=== PATIENT | male | born 1990 | race Caucasian/White ===

== ENCOUNTER 2016-11-25 10:10 | Observation (INO) ==
[2016-11-25] MEDS ORDERED: KETOROLAC 30 MG/ML INJECTION IVP ONE (10:42)
[2016-11-25] MEDS ORDERED: NS 1,000 ML IV ONE (10:42)
--- NOTE | 2016-11-25 10:47 | Emergency Department Report ---
Abdominal Pain HPI - General Chief Complaint: Abdominal Pain Stated Complaint: severe abd pain,vomiting,loose stools Time Seen by Provider: 11/25/16 10:14 Source: patient, old records reviewed Mode of arrival: ambulatory Limitations: no limitations - History of Present Illness HPI narrative: 26yo man presents to the ER for evaluation of abdominal pain. Pts pain started 7 days ago; 3 days ago, the pain had increased to the point that pt presented to the ER for evaluation. Pt was found to have ascending/transverse colitis. Pt was given levsin and zofran and d/c'ed to home. Pts sx have not improved in the intervening 3 days. Pt has not f/u with his PCM (was over the weekend). Pt has never had sx like this before. No diarrhea or bloody stools; describes current stools (such as he can expel) as 'foamy'. Has tenesmus. States that he cannot eat or drink 2/2 abd pain. MD complaint: abdominal pain Onset (ago): day(s) (7) Consistency: constant Location: RUQ Severity: severe Severity scale (1-10): 8 Quality: cramping, stabbing Radiation: none Migration to: no migration Relieving factors: nothing Exacerbating factors: eating, bowel movement, movement Associated symptoms: nausea, vomiting Treatments prior to arrival: other - Related Data Home Medications Medication Instructions Recorded Confirmed LORazepam [Ativan] 0.5 mg PO TID PRN 11/23/16 11/25/16 Ondansetron HCl [Zofran] 8 mg PO O 11/23/16 11/25/16 diphenhydrAMINE HCl [Benadryl] 25 mg PO HS PRN 11/23/16 11/25/16 Previous Rx's Medication Instructions Recorded Hyoscyamine Sulfate [Levsin-Sl] 0.125 mg SL Q6H PRN #15 tab.subl 11/23/16 Allergies Allergy/AdvReac Type Severity Reaction Status Date / Time No Known Allergies Allergy Verified 11/25/16 15:13 Review of Systems All systems: reviewed and negative except as stated Gastrointestinal: Reports: as per HPI, abdominal pain, nausea, vomiting, other ( tenesmus) PFSH Medical History Updates: Allergic rhinitis Surgical History: Denies any PSH - Social History Smoking status: Never smoker Physical Exam - Limitations Limitations: no limitations - General General appearance: alert, in no apparent distress - Normal Exams: Head:: Normocephalic without trauma Eyes:: Pupils are PERRLA w/ EOMI, No scleral icterus, irritation, or foreign bodies noted ENMT:: No facial trauma, nasal exudates, pharyngeal erythema, or exudates are noted Neck:: Full range of motion, without adenopathy Chest/Respirations:: Clear all b[place], with good airflow Cardiovascular:: Regular rate and rhythm, without murmur or gallop, Pulses 2+ all extremities, capillary refill Lymphatic:: No lymphadenopathy Musculoskeletal:: No tenderness, or deformity noted Integumentary:: No rashes, hives, or bruising noted Neurological:: Patient is alert, and oriented Psychiatric:: Patient exhibits, appropriate attention - Abdominal Exam Abdominal exam: Present: soft, tenderness (in RLQ), hyperactive bowel sounds. Absent: distention, guarding, rebound, rigidity, psoas sign, obturator sign, Meehan's sign, Rovsing's sign, tenderness at McBurney's Point, hernia Course - Consultations Consultation #1: General Surgery: If pt is in that much pain, contact hospitalist for admission. Treat empirically for inflammatory colitis, give a bowel prep, and plan for colonoscopy. Time: 11:35 Consultation #2: Dr. Trinh: Will admit pt. Time: 12:00 Vital Signs Temperature 97.6 F 11/25/16 10:12 Pulse Rate 60 11/25/16 10:12 Respiratory Rate 20 11/25/16 10:12 Blood Pressure 142/82 H 11/25/16 10:12 Pulse Oximetry 97 11/25/16 10:12 Temperature 97.6 F 11/25/16 10:12 Pulse Rate 60 11/25/16 10:12 Respiratory Rate 20 11/25/16 10:12 Blood Pressure 142/82 H 11/25/16 10:12 Pulse Oximetry 97 11/25/16 10:12 Abdominal Pain - Differential Diagnosis Differential diagnosis: Likely: abdominal pain, acute appendicitis, constipation , diverticulitis, endometriosis, gastroenteritis, pancreatitis, small bowel obstruction - Medical Records Attestation: I reviewed the patient's medical records. - Lab Data Attestation: I reviewed the patient's lab results. Result diagrams: 11/26/16 04:23 11/26/16 04:23 - Radiology Data Attestation: I reviewed the patient's radiology results. CT from 23 NOV 2016: Impression: Right sided colitis could be infectious or inflammatory. Disposition Clinical Impression: Abdominal pain Qualifiers: Abdominal location: unspecified location Qualified Code(s): R10.9 - Unspecified abdominal pain Disposition: 02 To [facility] [place] Care Condition: Stable Time of Disposition: 12:15 - Seen By: physician
[2016-11-25] MEDS: SALINE FLUSH 10ml SYRINGE IVF PRN ×2 (11:08→15:05)
--- NOTE | 2016-11-25 13:57 | History & Physical Report ---
<Mera Kelly - Last Filed: 11/25/16 13:43> History of Present Illness Date: 11/25/16 Chief complaint: Abdominal pain HPI: Corey Long is a healthy 26 y/o male who started to have a mildly upset stomach in the evening of 11/19/16. 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 However, at 0300 on 11/22/16, his pain became severe and he started to vomit. His pain started across his lower abdomen, but time went on it started to settle on the right side. He describes the pain as a "pulling" sensation. His oral intake has suffered greatly - he became nauseated with even a sip of water. He hasn't eaten anything since 11/22/16 in the afternoon, and since then has only had a few sips of water. He hasn't had much stool output, but notes it has been "foamy". He feels a little weak overall, but denies lightheadedness, dizziness, or syncope. He has not had any fevers or chills. Other than his allergies starting to give him trouble, he denies any cough/congestion, or sore throat. He denies shortness of breath or chest pain or palpitations. He denies bloody urine or hematuria, but states that he has only voided once so far today. He was seen in the ED on 11/23/16, and a CT scan showed right sided colitis to the ascending and proximal transverse colon. Labs on 11/23/16 showed a normal WBC and an elevated sodium of 150. He was sent home with Rx Levsin but his symptoms never improved. He returned to the ED on 11/25/16 , and labs were repeated - WBC 7.0, hgb 15.6, Na 149, K 4.3, BUN 17, creatinine 1.0. Total bilirubin was 2.4. Lactate was 1.3. He received 1L of NS and Toradol , which relieved his pain. He was admitted to observation status for surgical consultation. Review of Systems Comprehensive ROS: completed and no additional positive findings except those as stated - Constitutional Constitutional: Present: as per HPI - EENMT Eyes: Absent: change in vision Nose: Present: as per HPI Mouth/Throat: Present: as per HPI - Cardiovascular Cardiovascular: Absent: chest pain, dyspnea on exertion Vascular: Absent: pedal edema - Respiratory Respiratory: Present: as per HPI - Gastrointestinal Gastrointestinal: Present: as per HPI - Genitourinary Genitourinary: Present: as per HPI - Neurological Neurological: Present: as per HPI - Psychiatric Psychiatric: Present: anxiety (with long travels - has PRN medication to take) - Hematologic/Lymphatic Hematologic/Lymphatic: Absent: easy bleeding - Allergic/Immunologic Allergic/Immunologic: Present: as per HPI PFSH Allergic rhinitis Surgical History: Denies any PSH Family History: Mother alive and well other than back problems. Father may have heart disease. 2 brothers and 1 sister - all healthy. Maternal grandfather of Alzheimer's disease. Strong family history of heart disease on father's side - Paternal grandfather of [place]; uncles also had CAD. Denies family history of ulcerative colitis, Crohn's disease, or colon cancer. - Social History Smoking status: Never smoker Substance use type: does not use Alcohol intake frequency: holidays/special occasions only Household members: significant other ( (Kathie) is a RN), children (2 children, ages 4 and 2) Current occupational status: employed Current occupation: data officer Medications Home Medications Medication Instructions Recorded Confirmed Type LORazepam [Ativan] 0.5 mg PO TID PRN 11/23/16 11/25/16 History Ondansetron HCl [Zofran] 8 mg PO O 11/23/16 11/25/16 History diphenhydrAMINE HCl [Benadryl] 25 mg PO HS PRN 11/23/16 11/25/16 History Allergies Allergy/AdvReac Type Severity Reaction Status Date / Time No Known Allergies Allergy Verified 11/25/16 15:13 Exam Vital Signs: Temperature 97.6 F 11/25/16 10:12 Pulse Rate 60 11/25/16 10:12 Respiratory Rate 20 11/25/16 10:12 Blood Pressure 142/82 H 11/25/16 10:12 Pulse Oximetry 97 11/25/16 10:12 - Constitutional Present: no acute distress, well nourished, well developed, thin - Routine HEENT Exam Eye: Present: PERRL, conjunctivae pink. Absent: conjunctival icterus, scleral injection ENT: Present: mucous membranes moist, oropharynx clear - Routine Neck Exam Present: supple. Absent: lymphadenopathy - Routine Respiratory Exam Present: CTA bilaterally - Routine Cardiovascular Exam Present: RRR, S1, S2 - Routine Abdominal Exam Present: soft, non tender, distended (mild). Absent: normoactive bowel sounds ( hypoactive sounds LUQ and LLQ), rebound, guarding - Routine Extremities Exam Present: no edema, pulses intact, normal capillary refill. Absent: calf tenderness - Routine Skin Exam Present: intact, dry, warm - Routine Neurological Exam Present: alert, oriented X3, CN II-XII intact, moving all extremities, vision grossly intact, hearing grossly intact, normal speech. Absent: facial asymmetry - Routine Psychiatric Exam Present: normal affect, normal thought process, cooperative Results - Labs CBC & Chem 7: 11/25/16 11:13 11/25/16 11:13 - Imaging and Cardiology CT scan - abdomen Additional comments: Type of Exam(s): CT abdomen pelvis w contrast Date: 11/23/16 Findings: The lung bases are clear. The liver, gallbladder, pancreas, adrenal glands and kidneys are normal. The spleen is normal. No abdominal or pelvic adenopathy. Bladder is normal. Prostate and rectum are unremarkable. No free fluid. No evidence of a bowel obstruction. There is significant wall thickening and inflammatory change involving the ascending and proximal transverse colon. Mid to distal transverse and left colon appear normal. The appendix is normal. Bone windows are within normal limits. Impression: Right sided colitis could be infectious or inflammatory. Assessment and Plan (1) Colitis Current visit: Yes Status: Acute DVT Prophylaxis: SCD's Resuscitation Status: Full Code Assessment and Plan: Assessment Acute right sided colitis involving the ascending and proximal transverse colon Hypernatremia, POA Hyperbilirubinemia, POA Plan Admit, observation status under the hospitalist service. Consult Dr. Mora - may need endoscopy. Diet: Clears. IVF: D5 1/2 NS at 250 mL/hr x 1L then reduce rate to 125 mL/hr. Symptom control: Zofran, Toradol PRN. GI panel pending. Repeat CBC, CMP in am. Bilirubin was 1.30 on 11/23/16 - on admission it was 2.4 without elevation in other liver enzymes. Discussed with Dr. Trinh: she will likely begin empiric antibiotics, possibly steroids. Hospital Course Summary Disclaimer: The visit summary below is not to be considered part of the above Progress Note. Hospital Course: Admitted on 11/25/16 for Acute right sided colitis involving the ascending and proximal transverse colon; Hypernatremia; and Hyperbilirubinemia. IVF were started for hydration and to treat hypernatremia. Zofran and Toradol were available for symptom relief. Dr. Mora was consulted. <ZiggyBryanLinda L - Last Filed: 11/25/16 15:48> History of Present Illness Date: 11/25/16 [facility] Patient Stated Medical History Other GI Yes: UMBILICAL HERNIA Other Behavioral Health Yes: CLOSTERFOBIA Exam Vital Signs: Temperature 96.1 F L 11/25/16 14:23 Pulse Rate 66 11/25/16 14:23 Respiratory Rate 16 11/25/16 14:23 Blood Pressure 123/65 11/25/16 14:23 Pulse Oximetry 100 11/25/16 14:23 Oxygen Delivery Method Room Air Height/Weight/BMI: Height 1.83 m Weight 80.8 kg Body Mass Index 24.1 Results - Labs CBC & Chem 7: 11/25/16 11:13 11/25/16 11:13 Assessment and Plan (1) Colitis Current visit: Yes Status: Acute Assessment and Plan: 11/25/2016-I reviewed this chart, the patient history, and the COMMUNITY RELATIONS COORDINATOR's/PA's documented findings as above. We discussed and formulated the assessment and plan as above with the additions below.-Dr. Trinh The patient was seen this afternoon accompanied by his . GI panel was obtained and shows enterotoxigenic Escherichia coli positive PCR. The patient has had no sick contacts. He does report that symptoms started after he ate at [email or web address]. He denies any bloody stools. He denies any fevers, chills or sweats. He does have abdominal pain that was initially in the lower abdomen and then moved to be all over the abdomen and now is more in the right upper abdomen. His appetite is decreased and he is vomiting even with liquids for the past several days. He has tenesmus and foamy stool. Today stool is small and brown. He has felt weak which he thinks is due to dehydration and poor by mouth intake recently. He denies lightheadedness, chest pain, generalized achiness, skin rashes. He states his urine has been dark and he has had decreased urination with decreased by mouth intake. Otherwise comprehensive review of systems is entirely negative. On exam he is alert and oriented 3 and in no acute distress. HEENT reveals sclerae to be anicteric and pupils are equal. Oropharynx is moist. Neck is supple. Chest is clear to auscultation. Cardiovascular reveals a regular rate and rhythm. Abdomen is soft with positive bowel sounds. He is tender in the right upper quadrant and right mid abdomen. No rebound or guarding. No distention. Chimneys are free of edema. Skin is warm and dry and without rashes. Neurologic exam reveals no focal deficits. Lab GI panel is positive for enterotoxigenic Escherichia coli UA elevated specific gravity, 3+ ketones, +1 occult blood, +1 bilirubin, no RBCs seen CMP shows elevated sodium of 149 and elevated total bilirubin of 2.4. Lactate is normal CT abdomen from 2 days ago reviewed and revealed right sided colitis which could be infectious or inflammatory. Impression Colitis, most likely from enterotoxigenic Escherichia coli. Dehydration Hypernatremia secondary to dehydration Elevated bilirubin Plan IV Flagyl and Cipro for now. IV fluids for dehydration Recheck lab tomorrow Obtain conjugated and unconjugated bilirubin levels Will discuss further plans with Dr. Mora. Hospital Course Summary Disclaimer: The visit summary below is not to be considered part of the above Progress Note.
[2016-11-25 14:08] VITALS: BMI 24.1
[2016-11-25] MEDS ORDERED: ONDANSETRON 4 MG/2 ML INJECTION IVP PRN (14:23)
[2016-11-25] MEDS ORDERED: KETOROLAC 15 MG/ML INJECTION IVP PRN (14:23)
[2016-11-25 14:24] VITALS: RESP 16
[2016-11-25] MEDS: D5-1/2NS 1,000 ML IV SCH ×2 (15:06→22:15)
[2016-11-25] MEDS ORDERED: HYDROMORPHONE 2 MG/ML INJECTION IVP PRN (15:14)
[2016-11-25] MEDS ORDERED: METOCLOPRAMIDE 10mg/2ml INJECTION IVP PRN (15:18)
[2016-11-25] MEDS: MetroNIDAZOLE PB 500 MG/100 ML BAG IV SCH (16:11)
[2016-11-25] MEDS: CIPROFLOXACIN PB 400 MG/200 ML BAG IV SCH (17:41)
[2016-11-25] MEDS: LACTOBACILLUS (15B cfu) CAPSULE PO SCH ×2 (17:42→18:48)
--- NOTE | 2016-11-25 18:48 | General Surgery Consult Note ---
Consult date: 11/25/16 Attending Physician: Linda Trinh MD Reason for consult: other (colitis) PFSH Patient Stated Medical History Other GI Yes: UMBILICAL HERNIA Other Behavioral Health Yes: CLOSTERFOBIA Medical History Updates: Allergic rhinitis Surgical History: Denies any PSH Family History: Father - possible heart disease Mother - alive and well 2 children ages 2 and 4, alive and well - Social History Smoking status: Never smoker Household members: spouse Medications Home Medications Medication Instructions Recorded Confirmed Type LORazepam [Ativan] 0.5 mg PO TID PRN 11/23/16 11/25/16 History Ondansetron HCl [Zofran] 8 mg PO O 11/23/16 11/25/16 History diphenhydrAMINE HCl [Benadryl] 25 mg PO HS PRN 11/23/16 11/25/16 History Allergies Allergy/AdvReac Type Severity Reaction Status Date / Time No Known Allergies Allergy Verified 11/25/16 15:13 - Vital Signs Last Vital Signs Temp 97.4 F 11/25/16 15:43 Pulse 59 L 11/25/16 15:43 Resp 16 11/25/16 15:43 BP 122/65 11/25/16 15:43 Pulse Ox 97 11/25/16 15:43 - Laboratory Result Diagrams: 11/25/16 11:13 11/25/16 11:13 Hospital Course Summary Disclaimer: The visit summary below is not to be considered part of the above Progress Note. Hospital Course: Admitted on 11/25/16 for Acute right sided colitis involving the ascending and proximal transverse colon; Hypernatremia; and Hyperbilirubinemia. IVF were started for hydration and to treat hypernatremia. Zofran and Toradol were available for symptom relief. Dr. Mora was consulted. Sepsis Assessment - Evaluation Sepsis screening result: No Definite Risk
[2016-11-26] MEDS: D5-1/2NS 1,000 ML IV SCH ×4 (00:28→16:49)
[2016-11-26] MEDS ORDERED: NS FLUSH BAG 500ml IV PRN (02:51)
[2016-11-26] MEDS: MetroNIDAZOLE PB 500 MG/100 ML BAG IV SCH (04:05)
[2016-11-26] MEDS: CIPROFLOXACIN PB 400 MG/200 ML BAG IV SCH (05:21)
[2016-11-26] MEDS ORDERED: CALCIUM CARBONATE Chewable 750mg TABLET PO PRN (08:22)
[2016-11-26] MEDS ORDERED: ACETAMINOPHEN 500 MG TABLET PO PRN (08:26)
[2016-11-26] MEDS ORDERED: HYDROCODONE/APAP 5mg/325mg TABLET PO PRN (08:27)
[2016-11-26] MEDS: LACTOBACILLUS (15B cfu) CAPSULE PO SCH ×2 (09:26→13:15)
[2016-11-26] MEDS: FAMOTIDINE 20 MG TABLET PO SCH ×2 (09:26)
[2016-11-26 10:34] VITALS: BP 120/66; PULSE 67; TEMP 96.9; O2SAT 97
--- NOTE | 2016-11-26 11:06 | Progress Note ---
Subjective: The patient was seen this morning accompanied by his . He had some epigastric discomfort this morning that he describes more as a feeling of being nauseated. He was able to eat some oatmeal without vomiting. He's had some diarrhea this morning and it looks dark green to black. No red blood seen. He says his abdominal pain is better today but not gone. He denies any shortness of breath or chest pain. He denies any lightheadedness. He is urinating more frequently and his urine is becoming more light in color today. Objective Vital signs: Temperature 96.9 F 11/26/16 10:33 Pulse Rate 67 11/26/16 10:33 Respiratory Rate 16 11/26/16 10:33 Blood Pressure 120/66 11/26/16 10:33 Pulse Oximetry 97 11/26/16 10:33 Oxygen Delivery Method Room Air Height/Weight/BMI: Height 1.83 m Weight 81.8 kg Body Mass Index 24.1 Comments: GEN-alert, oriented, no acute distress- CV-regular rate and rhythm CHEST-clear to auscultation bilaterally ABD-soft, minimal suprapubic/right lower quadrant tenderness, no rebound or guarding, normal bowel sounds, no distention -no Mccoy EXT-no edema NEURO-moves all 4 extremities, no focal deficits, gait is normal SKIN-warm and dry and without rashes Results - Labs CBC & Chem 7: 11/26/16 04:23 11/26/16 04:23 Microbiology Results: White count remains normal. Hemoglobin is 14 down from 15.6 and this is likely dilutional. Normal differential Sodium has normalized. Total bili is 2.1 down from 2.4. Fractionated bilirubin showed unconjugated at 1.6 and conjugated at 0. Liver panel today is essentially normal other than total protein 6.1 and globulin 2.3 Assessment and Plan (1) Colitis Current visit: Yes Status: Acute Assessment and Plan: 11/26/2016-Dr. Trinh Impression Colitis, most likely from enterotoxigenic Escherichia coli. Dehydration-resolved Hypernatremia secondary to dehydration-resolved Elevated mspezjafd-dcfbargl-qoskmi Gilbert's syndrome Nausea/questionable GERD-better post Pepcid Plan Change Flagyl and Cipro to oral DC IV fluids when taking by mouth well Dismiss to home if tolerating by mouth today and pain controlled without IV pain medication. Toradol discontinued because of epigastric discomfort. Discussed the patient yesterday with Dr. Mora. After lab showed enterotoxigenic Escherichia coli, we both agreed that treatment with antibiotics was appropriate and the patient would not need steroids or colonoscopy at this time. I did cancel the surgical consultation. Sepsis Assessment - Evaluation Sepsis screening result: No Definite Risk Hospital Course Summary Disclaimer: The visit summary below is not to be considered part of the above Progress Note. Hospital Course: 11/25/2016-I reviewed this chart, the patient history, and the TAP OUT OPERATOR's/PA's documented findings as above. We discussed and formulated the assessment and plan as above with the additions below.-Dr. Trinh The patient was seen this afternoon accompanied by his . GI panel was obtained and shows enterotoxigenic Escherichia coli positive PCR. The patient has had no sick contacts. He does report that symptoms started after he ate at [employer]. He denies any bloody stools. He denies any fevers, chills or sweats. He does have abdominal pain that was initially in the lower abdomen and then moved to be all over the abdomen and now is more in the right upper abdomen. His appetite is decreased and he is vomiting even with liquids for the past several days. He has tenesmus and foamy stool. Today stool is small and brown. He has felt weak which he thinks is due to dehydration and poor by mouth intake recently. He denies lightheadedness, chest pain, generalized achiness, skin rashes. He states his urine has been dark and he has had decreased urination with decreased by mouth intake. Otherwise comprehensive review of systems is entirely negative. On exam he is alert and oriented 3 and in no acute distress. HEENT reveals sclerae to be anicteric and pupils are equal. Oropharynx is moist. Neck is supple. Chest is clear to auscultation. Cardiovascular reveals a regular rate and rhythm. Abdomen is soft with positive bowel sounds. He is tender in the right upper quadrant and right mid abdomen. No rebound or guarding. No distention. Chimneys are free of edema. Skin is warm and dry and without rashes. Neurologic exam reveals no focal deficits. Lab GI panel is positive for enterotoxigenic Escherichia coli UA elevated specific gravity, 3+ ketones, +1 occult blood, +1 bilirubin, no RBCs seen CMP shows elevated sodium of 149 and elevated total bilirubin of 2.4. Lactate is normal CT abdomen from 2 days ago reviewed and revealed right sided colitis which could be infectious or inflammatory. Impression Colitis, most likely from enterotoxigenic Escherichia coli. Dehydration Hypernatremia secondary to dehydration Elevated bilirubin Plan IV Flagyl and Cipro for now. IV fluids for dehydration Recheck lab tomorrow Obtain conjugated and unconjugated bilirubin levels Will discuss further plans with Dr. Mora.
--- NOTE | 2016-11-26 15:51 | Discharge Instructions ---
Discharge Plan - Med Rec/Dispo Referrals/Follow Up: Juanita Garcia APRN [Family Provider] - (in the next week.) Prescriptions: New Acetaminophen [Tylenol] 1,000 mg PO Q5H PRN tablet PRN Reason: Discomfort Acidoph/L.bulg/Bif.b/S.thermop [Bacid Caplet] 2 cap PO TIDWM tablet Famotidine [Pepcid] 20 mg PO BID PRN #10 tablet PRN Reason: Indigestion MetroNIDAZOLE [Flagyl] 500 mg PO BIDWM #8 tablet Ciprofloxacin [Cipro] 500 mg PO Q12HR #8 tablet Continue Ondansetron HCl [Zofran] 8 mg PO O LORazepam [Ativan] 0.5 mg PO TID PRN PRN Reason: Prn Orders diphenhydrAMINE HCl [Benadryl] 25 mg PO HS PRN PRN Reason: Insomnia Discontinued Hyoscyamine Sulfate [Levsin-Sl] 0.125 mg SL Q6H PRN #15 tab.subl PRN Reason: Cramps Discharge Instructions/Outpatient Orders: Final Provider Discharge Instructions Location: Determined By Patient - Disposition 01 Discharged Home, Self-Care
[2016-11-26] MEDS ORDERED: CIPROFLOXACIN 500 MG TABLET PO SCH (17:00)
[2016-11-26] MEDS ORDERED: MetroNIDAZOLE 500 MG TABLET PO SCH (17:00)
== END 2016-11-26 16:30 | disposition home or self-care (01) ==
LOC: SRG 10:10 → ED 10:10 → SRG 13:56
PROVIDERS: ADMIT Internal Medicine; ATTEND Internal Medicine